=== PATIENT | female | born 1965 | race African-American/Black ===

== ENCOUNTER 2016-12-10 23:22 | Emergency (ER) | payer OTHER ==
[~2016-12-10] VITALS: Ht 167.6 cm; Wt 108.9 kg
--- NOTE | ~2016-12-10 | EKG ---
[place] [address] [facility] [place] [address] ELECTROCARDIOGRAM REPORT Name: ASHLEY BLOUNT Room #: [facility]P [facility]AMLashell#: [id number] Admission: 12/10/16 Attend Phys: Discharge: 12/11/16 Date of : 67 Report #: [id number] THIS REPORT FOR: //name// [facility] ED Test Date: 2016-12-11 Test Time: 00:02:06 Pat Name: ASHLEY BLOUNT Department: Room: Gender: F Organizational Consultant: cweiskirill : 1965 Requested By: Darren Deleon Order Number: [id number] MD: Maciej Brennan Measurements Intervals [place] Rate: 93 P: 69 MS: 167 QRS: 12 QRSD: 95 T: 6 QT: 343 QTc: 427 Interpretive Statements Sinus rhythm Normal tracing No previous ECG available for comparison Electronically Signed On 12-11-2016 8:02:09 CDT by Maciej Brennan [email or web address] <ELECTRONICALLY SIGNED> By: Maciej Brennan MD, [facility] 12/11/16 0802 0002 0002 Maciej Brennan MD, FACC /EPI
[~2016-12-10 23:22] MED LIST: AYGESTIN 5 MG TA5 M1 PO; BACTRIM DS TAB1 EACH PO; CIPROFLOXACIN500 M1 PO; CIPROFLOXACIN500 M3 OR; KEFLEX500 MG PO; LIDOCAINE 2%2 %/5 GM MM; NOHOMEMEDICATIONS; NORCO 5-325 TA1 EACH PO; PYRIDIUM200 MG PO
[2016-12-11 00:05] VITALS: BP 195/104
== END 2016-12-11 00:08 | disposition home or self-care (01) ==
LOC: ER 23:22
DX: F41.9 Anxiety disorder, unspecified (principal)

== ENCOUNTER 2017-09-06 13:24 | Emergency (ER) | payer OTHER ==
[~2017-09-06] VITALS: Ht 167.6 cm; Wt 108.9 kg
[~2017-09-06 13:24] MED LIST changes: +KEFLEX500 M1 PO; +LIPITOR10 MG PO; +LISINOPRIL10 MG PO; +MOBIC7.5 MG PO; +VITAMIN D400 UNIT PO
[2017-09-06] MEDS ORDERED: IRON325 PO (13:36)
[2017-09-06] MEDS ORDERED: CALCIUM CITRAT1 EAC7 PO (13:37)
[2017-09-06] MEDS ORDERED: NAPROSYN500 MG PO (13:50)
[2017-09-06] MEDS ORDERED: PENICILLIN V P500 MG PO (13:50)
[2017-09-06] MEDS ORDERED: ULTRAM 50MG TAB50 MG PO (13:50)
== END 2017-09-06 14:14 | disposition home or self-care (01) ==
LOC: ER 13:24
DX: K08.89 Other specified disorders of teeth and supporting structures (principal); K05.10 Chronic gingivitis, plaque induced; I10 Essential (primary) hypertension; E78.00 Pure hypercholesterolemia, unspecified

== ENCOUNTER 2017-09-29 17:48 | Emergency (ER) | payer OTHER ==
[~2017-09-29] VITALS: Ht 167.6 cm; Wt 108.9 kg
[~2017-09-29 17:48] MED LIST changes: +CALCIUM CITRAT1 EAC7 PO; +IRON325 PO; +NAPROSYN500 MG PO; +PENICILLIN V P500 MG PO; +ULTRAM 50MG TAB50 MG PO
== END 2017-09-29 19:04 | disposition home or self-care (01) ==
LOC: ER 17:48
DX: J11.1 Influenza due to unidentified influenza virus with other respiratory manifestations (principal); I10 Essential (primary) hypertension; E78.00 Pure hypercholesterolemia, unspecified

== ENCOUNTER 2017-11-27 21:40 | Emergency (ER) | payer OTHER ==
[~2017-11-27] VITALS: Ht 167.6 cm; Wt 111.1 kg
[2017-11-27 21:43] VITALS: BP 168/105
[2017-11-27 22:39] LABS: URINE BILIRUBIN NEGATIVE (Negative); URINE BLOOD TRACE (Negative); URINE CLARITY CLEAR; URINE COLOR YELLOW; URINE GLUCOSE-RANDOM* NEGATIVE (Negative); URINE KETONES NEGATIVE (Negative); URINE LEUKOCYTES NEGATIVE (Negative); URINE NITRITE NEGATIVE (Negative); URINE PROTEIN (DIPSTICK) NEGATIVE (Negative); URINE SPECIFIC GRAVITY 1.025 (1.005-1.035); URINE UROBILINOGEN 0.2 E.U./dl (0.2-1.0)
== END 2017-11-27 23:10 | disposition home or self-care (01) ==
LOC: ER 21:40
PROVIDERS: Emergency Medicine
DX: R10.30 Lower abdominal pain, unspecified (principal); M54.5 Low back pain; I10 Essential (primary) hypertension; E78.00 Pure hypercholesterolemia, unspecified

== ENCOUNTER 2018-08-27 14:51 | Emergency (ER) | payer OTHER ==
[~2018-08-27] VITALS: Ht 167.6 cm; Wt 113.4 kg
[2018-08-27 15:32] LABS: URINE BILIRUBIN NEGATIVE (Negative); URINE BLOOD NEGATIVE (Negative); URINE CLARITY CLEAR; URINE COLOR YELLOW; URINE GLUCOSE-RANDOM* NEGATIVE (Negative); URINE KETONES NEGATIVE (Negative); URINE LEUKOCYTES-REFLEX NEGATIVE (Negative); URINE NITRITE-REFLEX NEGATIVE (Negative); URINE PROTEIN (DIPSTICK) NEGATIVE (Negative); URINE UROBILINOGEN 0.2 E.U./dl (0.2-1.0)
[2018-08-27] MEDS ORDERED: FLONASE 0.05%50 MCG NASAL (16:19)
[2018-08-27 16:20] VITALS: BP 118/76
== END 2018-08-27 16:22 | disposition home or self-care (01) ==
LOC: ER 14:51
PROVIDERS: Physician Assistant
DX: J06.9 Acute upper respiratory infection, unspecified (principal); B34.9 Viral infection, unspecified; R30.0 Dysuria; I10 Essential (primary) hypertension; E78.00 Pure hypercholesterolemia, unspecified; Z86.2 Personal history of diseases of the blood and blood-forming organs and certain disorders involving the immune mechanism

== ENCOUNTER 2019-02-28 14:29 | Emergency (ER) | payer OTHER ==
[~2019-02-28] VITALS: Ht 167.6 cm; Wt 113.4 kg
[~2019-02-28 14:29] MED LIST changes: +FLONASE 0.05%50 MCG NASAL
[2019-02-28 14:30] VITALS: BP 127/81
[2019-02-28] MEDS ORDERED: ROBAXIN 750 MG750 MG PO (16:54)
[2019-02-28] MEDS ORDERED: TYLENOL EXTRA500 MG PO (16:54)
== END 2019-02-28 17:04 | disposition home or self-care (01) ==
LOC: ER 14:29
DX: M25.522 Pain in left elbow (principal); M25.562 Pain in left knee; M25.512 Pain in left shoulder; I10 Essential (primary) hypertension; E78.00 Pure hypercholesterolemia, unspecified; Z86.2 Personal history of diseases of the blood and blood-forming organs and certain disorders involving the immune mechanism; V29.9XXA Motorcycle rider (driver) (passenger) injured in unspecified traffic accident, initial encounter; Y93.89 Activity, other specified; Y92.89 Other specified places as the place of occurrence of the external cause; Y99.8 Other external cause status

== ENCOUNTER 2019-07-12 21:43 | Emergency (ER) | payer OTHER ==
[~2019-07-12] VITALS: Ht 167.6 cm; Wt 114.8 kg
[~2019-07-12 21:43] MED LIST changes: +ROBAXIN 750 MG750 MG PO; +TYLENOL EXTRA500 MG PO
[2019-07-12 21:44] VITALS: BP 165/62
[2019-07-12] MEDS ORDERED: NORCO 5-325 TA1 EAC1 PO (21:49)
[2019-07-12] MEDS ORDERED: IBUPROFEN 800800 M1 PO (21:49)
[2019-07-12] MEDS ORDERED: PENICILLIN V P500 MG PO (21:49)
== END 2019-07-12 22:18 | disposition home or self-care (01) ==
LOC: ER 21:43
DX: K04.01 Reversible pulpitis (principal); I10 Essential (primary) hypertension; E78.00 Pure hypercholesterolemia, unspecified; Z86.2 Personal history of diseases of the blood and blood-forming organs and certain disorders involving the immune mechanism

== ENCOUNTER 2019-11-26 17:17 | Emergency (ER) | payer OTHER ==
[~2019-11-26] VITALS: Ht 167.6 cm; Wt 113.4 kg
[~2019-11-26 17:17] MED LIST changes: +IBUPROFEN 800800 M1 PO; +NORCO 5-325 TA1 EAC1 PO
[2019-11-26] MEDS ORDERED: PENICILLIN VK500 M1 PO (17:51)
[2019-11-26] MEDS ORDERED: NORCO 5-325 TA1 EAC1 PO (17:51)
[2019-11-26 19:16] VITALS: BP 148/78
== END 2019-11-26 19:10 | disposition home or self-care (01) ==
LOC: ER 17:17
DX: K08.89 Other specified disorders of teeth and supporting structures (principal); R51 Headache; I10 Essential (primary) hypertension; E78.00 Pure hypercholesterolemia, unspecified; Z79.899 Other long term (current) drug therapy

== ENCOUNTER 2020-07-19 01:39 | Emergency (ER) | payer OTHER ==
[~2020-07-19] VITALS: Ht 167.6 cm; Wt 117.0 kg
[~2020-07-19 01:39] MED LIST changes: +PENICILLIN VK500 M1 PO
[2020-07-19 01:43] VITALS: BP 156/72
[2020-07-19] MEDS ORDERED: AMOXICILLIN 50500 M1 PO (02:25)
[2020-07-19] MEDS ORDERED: IBU600 MG PO (02:26)
[2020-07-19] MEDS ORDERED: ULTRAM 50MG TAB50 MG PO (02:26)
== END 2020-07-19 02:32 | disposition home or self-care (01) ==
LOC: ER 01:39
DX: K02.9 Dental caries, unspecified (principal); I10 Essential (primary) hypertension; E78.5 Hyperlipidemia, unspecified; Z86.2 Personal history of diseases of the blood and blood-forming organs and certain disorders involving the immune mechanism; Z79.2 Long term (current) use of antibiotics; Z79.1 Long term (current) use of non-steroidal anti-inflammatories (NSAID); Z79.899 Other long term (current) drug therapy

== ENCOUNTER 2021-08-03 19:20 | Emergency (ER) | payer OTHER ==
[~2021-08-03] VITALS: Ht 170.2 cm; Wt 117.9 kg
[~2021-08-03 19:20] MED LIST changes: +AMOXICILLIN 50500 M1 PO; +IBU600 MG PO
[2021-08-03 19:36] VITALS: BP 162/87
== END 2021-08-03 20:33 | disposition home or self-care (01) ==
LOC: ER 19:20
DX: S63.501A Unspecified sprain of right wrist, initial encounter (principal); I10 Essential (primary) hypertension; E78.00 Pure hypercholesterolemia, unspecified; Z79.891 Long term (current) use of opiate analgesic; Z79.1 Long term (current) use of non-steroidal anti-inflammatories (NSAID); Z79.899 Other long term (current) drug therapy; W01.0XXA Fall on same level from slipping, tripping and stumbling without subsequent striking against object, initial encounter; Y93.89 Activity, other specified; Y92.89 Other specified places as the place of occurrence of the external cause; Y99.8 Other external cause status